=== PATIENT | female | born 1995 | race Caucasian/White ===

== ENCOUNTER 2017-01-13 17:00 | Emergency (ER) | payer SELFPAY ==
--- NOTE | 2017-01-13 17:38 | ED Physician Documentation ---
Ear Complaints - HISTORIAN Historian: patient - HPI Stated Complaint: Bilateral Ear Pain Chief Complaint: Earache Additional Information: x 1 day bilat, worsening Timing: still present, worse Location of Pain: both ears Severity: moderate Associated Symptoms: sharp pain. denies: discharge, hearing loss, ringing, roaring, trauma to ear Further Comments: no - ROS CONST: no problems CVS/RESP: none GI/: denies: black stools, nausea, vomiting MS/SKIN/LYMPH: none NEURO/PSYCH: denies: weakness, numbness, anxiety, depression All Systems -: Yes - PAST HX Past History: none Immunizations: referred to PCP Allergies/Adverse Reactions: Allergies Allergy/AdvReac Type Severity Reaction Status Date / Time Sulfa (Sulfonamide Allergy Severe Anaphylaxis Verified 01/13/17 17:09 Antibiotics) sulfamethoxazole Allergy Severe Anaphylaxis Verified 01/13/17 17:09 [From Bactrim] trimethoprim [From Bactrim] Allergy Severe Anaphylaxis Verified 01/13/17 17:09 Penicillins Allergy Verified 01/13/17 17:09 Home Medications: Ambulatory Orders Medication Instructions Recorded Norgestimate-Ethinyl Estradiol 1 each PO D 10/15/14 [Tri-Sprintec] - SOCIAL HX Smoking History: non-smoker Alcohol Use: none Drug Use: none - FAMILY HX Family History: No - VITAL SIGNS Vital Signs: Vital Signs Temp Pulse Resp BP Pulse Ox 97.2 F L 98 H 18 135/83 99 01/13/17 17:00 01/13/17 17:00 01/13/17 17:00 01/13/17 17:00 01/13/17 17:00 - REVIEWED ASSESSMENTS Nursing Assessment Reviewed: Yes Vitals Reviewed: Yes Progress - Results/Orders Results/Orders: no testing ordered - Progress Progress: pt. stable entire time in er Critical Care Note - Critical Care Note Total Time (mins): 0 ED Results Lab/Radiology - Lab Results Lab Results: no testing ordered - Radiology Radiology Impressions: no testing ordered Ear Complaint Physical Exam - EXAM General Appearance: alert, moderate distress Ear: auricle nml, dental hygienist mobile coordinator.canal nml, pain w movement of auricl, right, left, erythema (tm's) Mouth/Throat: lips nml, gums nml, pharynx nml Nose: nml inspection Head/Neck: atraumatic, neck nml inspection Eye: eyes nml inspection, PERRL Resp/CVS: chest non-tender, breath sounds nml, heart sounds nml, no resp. distress, lungs clear, reg. rate & rhythm Abdomen: non-tender, no organomegaly Skin: nml color, no skin rash Neuro/Psych: oriented x3, mood/affect nml Discharge Clincal Impression: Otitis media Qualifiers: Otitis media type: unspecified Laterality: bilateral Chronicity: unspecified Qualified Code(s): H66.93 - Otitis media, unspecified, bilateral Referrals: Primary Doctor,No [Primary Care Provider] - 2 Days Home Medications: Ambulatory Orders Norgestimate-Ethinyl Estradiol [Tri-Sprintec] 1 each PO D 10/15/14 Comments: discharged with scripts for keflex 500 mg 2 capsules twice daily for 10 days and cortisporin otic drops 2-3 each ear tid Condition: Stable Disposition: 01 HOME, SELF-CARE Decision to Admit: NO Decision Time: 17:40
[2017-01-13 19:55] VITALS: BP 128/68
== END 2017-01-13 18:00 | disposition home or self-care (01) ==
LOC: ED 17:00
DX: H66.93 Otitis media, unspecified, bilateral (principal)
CPT/HCPCS: 99283

== ENCOUNTER 2017-04-03 04:24 | Emergency (ER) | payer OTHER ==
[2017-04-03] MEDS ORDERED: 0.9 % SODIUM CHLORIDE 1,000 ML IV ONE (04:56)
[2017-04-03] MEDS: 0.9 % SODIUM CHLORIDE 1,000 ML IV ONE (05:00)
[2017-04-03] MEDS: MAGNESIUM CITRATE 296 ML BOTTLE PO ONE (05:55)
--- NOTE | 2017-04-03 05:55 | ED Physician Documentation ---
General Adult - HISTORIAN Historian: patient - HPI Stated Complaint: constipation Chief Complaint: General Adult Onset: hours Further Comments: yes (Pt is a 21 yo female with constipation. Pt is concerned about something protruding from rectum.) - ROS CONST: no problems EYES/ENT: none CVS/RESP: none GI/: other (constipation) MS/SKIN/LYMPH: none - PAST HX Past History: none Allergies/Adverse Reactions: Allergies Allergy/AdvReac Type Severity Reaction Status Date / Time Penicillins Allergy Severe Anaphylaxis Verified 04/03/17 04:42 Sulfa (Sulfonamide Allergy Severe Anaphylaxis Verified 04/03/17 04:42 Antibiotics) sulfamethoxazole Allergy Severe Anaphylaxis Verified 04/03/17 04:42 [From Bactrim] trimethoprim [From Bactrim] Allergy Severe Anaphylaxis Verified 04/03/17 04:42 Home Medications: Ambulatory Orders Medication Instructions Recorded Norgestimate-Ethinyl Estradiol 1 each PO D 10/15/14 [Tri-Sprintec] - SOCIAL HX Smoking History: non-smoker - FAMILY HX Family History: No - VITAL SIGNS Vital Signs: Vital Signs Temp Pulse Resp BP Pulse Ox 128/68 01/13/17 18:00 - REVIEWED ASSESSMENTS Nursing Assessment Reviewed: Yes Vitals Reviewed: Yes Progress - Progress Progress: NS 1 L IVF Magnesium Citrate 1 bottle --> home. Drink 1/2 bottle. If no bm after 6 hrs., repeat. General Adult Physical Exam - PHYSICAL EXAM GENERAL APPEARANCE: mild distress NECK: normal inspection, supple RESPIRATORY: no resp distress ABDOMEN: soft, no organomegaly, normal bowel sounds RECTAL: other (dhara-anal skin tag ) BACK: normal inspection, no CVA tenderness SKIN: warm/dry, normal color EXTREMITIES: non-tender, normal range of motion, no evidence of injury NEURO: oriented X3, motor nml, sensation nml Discharge Clincal Impression: Constipation Qualifiers: Constipation type: unspecified constipation type Qualified Code(s): K59.00 - Constipation, unspecified Referrals: Primary Doctor,No [Primary Care Provider] - 2 Days Home Medications: Ambulatory Orders Norgestimate-Ethinyl Estradiol [Tri-Sprintec] 1 each PO D 10/15/14 Condition: Good Disposition: 01 HOME, SELF-CARE Decision to Admit: NO Decision Time: 05:48
[2017-04-03 06:07] VITALS: BP 117/61
== END 2017-04-03 05:58 | disposition home or self-care (01) ==
LOC: ED 04:24
DX: K59.00 Constipation, unspecified (principal)
CPT/HCPCS: J7030 ×2; 96360; 96361; 99283; S1016